=== PATIENT | female | born 1940 | race Caucasian/White ===

== ENCOUNTER 2019-06-27 15:26 | Emergency (ER) | payer MEDICARE, OTHER ==
[~2019-06-27] VITALS: Ht 157.5 cm; Wt 71.6 kg
[2019-06-27] MEDS ORDERED: SODIUM BICARBONATE 8.4% INJ 50 ML SYRINGE ONE (15:27)
[2019-06-27] MEDS ORDERED: EPINEPHrine 1MG/10ML SYRINGE 1.5IN ONE (15:27)
[2019-06-27] MEDS ORDERED: AMIODARONE 150MG/3ML INJ (J0282) ONE (15:27)
== END 2019-06-27 17:30 | disposition expired ==
LOC: EDSEX 15:26 → EDBD 15:26 → M ED 15:26
DX: I46.9 Cardiac arrest, cause unspecified (principal); I48.91 Unspecified atrial fibrillation; I50.9 Heart failure, unspecified; E11.9 Type 2 diabetes mellitus without complications; I10 Essential (primary) hypertension; E78.5 Hyperlipidemia, unspecified; K31.89 Other diseases of stomach and duodenum; K74.60 Unspecified cirrhosis of liver; K76.6 Portal hypertension; R18.8 Other ascites; I85.00 Esophageal varices without bleeding; I86.4 Gastric varices; E66.9 Obesity, unspecified
CPT/HCPCS: 92950; 99285; J0282